=== PATIENT | male | born 1985 | race Caucasian/White ===

== ENCOUNTER 2020-04-29 10:39 | Emergency (ER) | payer BC, OTHER ==
[~2020-04-29 10:39] MED LIST: ASPIRIN EC81 MG PO; ATORVASTATIN CA20 MG PO; GLUCOPHAGE500 MG PO; NORCO 5-325 TA1 EACH PO; OMEPRAZOLE20 MG PO; TENORMIN 50 MG50 MG PO; TORADOL 10 MG T10 MG PO; TRICOR145 MG PO; VASCEPA1 GM PO; ZESTRIL/PRINIVI10 MG PO; ZOFRAN4 MG PO
[2020-04-29 11:09] LABS: HEMOGLOBIN 16.7 gm/dl (14.0-17.5); RED BLOOD COUNT 5.68 M/UL (4.20-5.50); WHITE BLOOD COUNT 7.2 K/UL (4.5-11.0)
[2020-04-29 11:48] LABS: BUN/CREATININE RATIO 14 (0-10)
[2020-04-29] MEDS ORDERED: ASPIRIN CHEWABL81 MG PO (14:11)
== END 2020-04-29 14:40 | disposition home or self-care (01) ==
LOC: ER1 10:39 → CDU 13:31
PROVIDERS: Emergency Medicine
DX: R07.89 Other chest pain (principal); R10.9 Unspecified abdominal pain; I10 Essential (primary) hypertension; E11.9 Type 2 diabetes mellitus without complications; M54.9 Dorsalgia, unspecified; E78.5 Hyperlipidemia, unspecified; K21.9 Gastro-esophageal reflux disease without esophagitis; E66.9 Obesity, unspecified; Z88.0 Allergy status to penicillin
CPT/HCPCS: 71045; 80053; 81001; 82550; 82553; 83690; 83874; 84484; 85025; 85379; 93005; 96374; 96375; 99285